=== PATIENT | female | born 1990 | race African-American/Black ===

== ENCOUNTER 2018-08-30 18:47 | Emergency (ER) | payer OTHER ==
[~2018-08-30] VITALS: Ht 172.7 cm; Wt 146.8 kg
[2018-08-30 19:09] VITALS: Ht 172.7 cm; Wt 146.8 kg
[2018-08-30] MEDS ORDERED: VOLTAREN75 MG PO (19:11)
[2018-08-30] MEDS ORDERED: HYDROCODON-ACE1 EA10 PO (19:11)
[2018-08-30] MEDS ORDERED: NEURONTIN 300300 MG PO (19:11)
[2018-08-30] MEDS ORDERED: NORVASC5 MG PO (19:11)
[2018-08-30] MEDS ORDERED: CYCLOBENZAPRINE10 MG PO (19:12)
[2018-08-30] MEDS ORDERED: IMITREX100 MG PO (19:14)
[2018-08-30] MEDS ORDERED: ELAVIL25 MG PO (19:14)
[2018-08-30 20:05] LABS: HCG URINE NEGATIVE (NEGATIVE)
[2018-08-30 20:06] LABS: APPEARANCE CLEAR (CLEAR); BILIRUBIN NEGATIVE (NEGATIVE); COLOR YELLOW (YELLOW); GLUCOSE NEGATIVE (NEGATIVE); KETONE SMALL mg/dL (NEGATIVE); NITRITE NEGATIVE (NEGATIVE); PROTEIN NEGATIVE (NEGATIVE); UROBILINOGEN NORMAL (NORMAL)
[2018-08-30 20:17] LABS: BASOPHILS 0.6 % (0-2); EOSINOPHILS 0.3 % (0-7); HEMATOCRIT 36.4 % (36.0-48.0); HEMOGLOBIN 11.9 g/dL (12-16); IMMATURE GRANULOCYTES 0.1 % (0-5); MCH 26.4 pg (26.0-34.0); MCHC 32.7 g/dL (31.0-37.0); MCV 80.7 fL (80.0-100.0); MEAN PLATELET VOLUME 10.5 fL (7.4-10.4); MONOCYTES 5.8 % (2-11); NEUTROPHILS 60.2 % (40-80); PLATELET COUNT 338 10x3/uL (130-400); RBC 4.51 10x6/uL (4.00-5.40); RDW 14.4 % (11.5-14.5)
[2018-08-30 20:40] LABS: ALBUMIN 3.8 g/dL (3.4-5.0); ANION GAP 12.9 mmol/L (8-16); BILIRUBIN - TOTAL 0.39 mg/dL (0.2-1.3); CALCIUM 9.1 mg/dL (8.5-10.1); CARBON DIOXIDE 27.3 mmol/L (21.0-32.0); CREATININE - SERUM 1.1 mg/dL (0.6-1.3); POTASSIUM - SERUM 3.2 mmol/L (3.5-5.1); PROTEIN - SERUM 8.4 g/dL (6.4-8.2)
[2018-08-30 20:44] LABS: HCG SERUM NEGATIVE (NEGATIVE)
[2018-08-30 21:00] VITALS: BP 123/79
== END 2018-08-30 21:00 | disposition home or self-care (01) ==
LOC: D.ER 18:47
PROVIDERS: Family Medicine
DX: N93.9 Abnormal uterine and vaginal bleeding, unspecified (principal); R10.30 Lower abdominal pain, unspecified; I10 Essential (primary) hypertension